=== PATIENT | male | born 1945 | race Caucasian/White ===

== ENCOUNTER 2018-09-19 08:06 | Emergency (ER) | payer OTHER, MEDICARE ==
[~2018-09-19] VITALS: Ht 193 cm; Wt 94.3 kg
[2018-09-19] MEDS ORDERED: FLUORESCEIN (FLUOR-I-STRIPS) 1 MG STRP ONE (08:08)
[2018-09-19] MEDS ORDERED: TETRACAINE 0.5% OPHTH SOLN 4 ML BTL (SINGLE DOSE ONLY) ONE (08:08)
--- NOTE | 2018-09-19 08:24 | NUR ---
DR MILIAN USED JUAREZ LAMP TO EXAMINE EYE
[2018-09-19] MEDS ORDERED: TETANUS,DIPTH,PERTUSS P/F (BOOSTRIX) 0.5 ML VIAL IM ONE (08:30)
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
[2018-09-19 10:00] VITALS: BP 152/95
[2018-09-19] MEDS ORDERED: ERYTHROMYCIN OPHTH OINT 1 GM (SINGLE USE) TUBE OP SCH (14:00)
== END 2018-09-19 10:00 | disposition home or self-care (01) ==
LOC: ER 08:08
DX: S01.111A Laceration without foreign body of right eyelid and periocular area, initial encounter (principal); I10 Essential (primary) hypertension; K21.9 Gastro-esophageal reflux disease without esophagitis; Z87.448 Personal history of other diseases of urinary system; Z88.0 Allergy status to penicillin; Z23 Encounter for immunization; V48.5XXA Car driver injured in noncollision transport accident in traffic accident, initial encounter; Y92.89 Other specified places as the place of occurrence of the external cause
CPT/HCPCS: 70450; 70486; 72125; 90715

== ENCOUNTER → 2019-06-16 | Outpatient (CLI) | payer MEDICARE ==
--- NOTE | 2019-06-16 14:35 | Diagnostic Imaging Report ---
Left knee at 9:44 a.m. INDICATION: Knee pain Three views were obtained. COMPARISON: There are no prior studies for comparison. FINDINGS: There is no fracture, dislocation or acute bony abnormality evident. The knee joint is well maintained. The soft tissues are unremarkable. IMPRESSION: There is no evidence for acute bony abnormality. Dictated by: Dictated on workstation # [id number]
== END ==
LOC: RAD FS 09:29
PROVIDERS: ATTEND Nurse Practitioner
DX: M25.562 Pain in left knee (principal)
CPT/HCPCS: 73562

== ENCOUNTER → 2020-11-07 | Outpatient (CLI) | payer MEDICARE | LOC: CARD 09:44 | PROVIDERS: ATTEND Internal Medicine Cardiovascular Disease | DX: I49.3 Ventricular premature depolarization (principal); I10 Essential (primary) hypertension; I34.0 Nonrheumatic mitral (valve) insufficiency | CPT/HCPCS: 93306 ==

== ENCOUNTER → 2020-11-19 | Outpatient (CLI) | payer MEDICARE ==
[~2020-11-19] VITALS: Ht 193 cm; Wt 93.0 kg
[~2020-11-19] MED LIST: CATHETER FLUSH 10 ML SYR IV PRN
[2020-11-19 12:04] VITALS: BP 139/87
[2020-11-19 12:07] VITALS: BP 178/88
[2020-11-19 12:13] VITALS: BP 143/81
--- NOTE | 2020-11-19 16:19 | Cardiology Stress Test Report ---
Stress Test Report Date of Procedure/Referring: Date of Procedure: Nov 19, 2020 PCP Leonie Eisenberg MD Admitting Physician Evelyn Morgan MD Indications: PVC Baseline Heart Rate: 70 Baseline Blood Pressure: Blood Pressure Systolic: 143 Blood Pressure Diastolic: 81 Vital Signs Date Time Temp Pulse Resp B/P (MAP) Pulse Ox O2 Delivery O2 Flow Rate FiO2 11/19/20 12:04 70 139/87 (104) 11/19/20 12:07 24 98 Room Air Baseline Vital Signs Vital Signs Date Time Temp Pulse Resp B/P (MAP) Pulse Ox O2 Delivery O2 Flow Rate FiO2 11/19/20 12:04 70 139/87 (104) 11/19/20 12:07 24 98 Room Air Summary: After explaining the procedure and details to the patient, he signed the consent and was brought to the stress nuclear laboratory. Patient exercised on standard Malcom protocol, EKG, heart rate and blood pressure were monitored continuously, resting and stress doses of radio tracer were injected, imaging was acquired and reviewed in the short axis, horizontal long axis and vertical long axis views Patient was able to exercise for a total of 5 minutes on Malcom protocol, METs 7 Maximum heart rate 129 Maximum blood pressure 184/94 Stress EKG, Minimal nondiagnostic changes, frequent PVCs noted during test Recovery EKG, Return to baseline TID: 1.03 SSS: 4 SDS: 4 EF: 63 Conclusion: 1. Fair exercise tolerance for a total of 5 minutes on standard Malcom protocol total of 7 METS achieving 87% of maximal expected heart rate 2. Frequent PVCs noted during exercise with occasional ventricular couplets persisted in the early phases of recovery 3. No ischemic EKG changes were noted 4. Diaphragmatic attenuation with mild decreased uptake involving the mid to apical inferior wall with mild reversibility 5. Normal left ventricular size, EF 63% LEONIE EISENBERG MD Nov 19, 2020 16:19
== END ==
LOC: CARD 10:18
PROVIDERS: ATTEND Internal Medicine Cardiovascular Disease
DX: I49.3 Ventricular premature depolarization (principal)
CPT/HCPCS: 78452; 93017; A9502

== ENCOUNTER 2020-11-28 08:43 | Day surgery (SDC) | payer MEDICARE ==
[2020-11-28] VITALS (9 sets, daily range): BP systolic 94–147; BP diastolic 56–89
[~2020-11-28] VITALS: Ht 193 cm; Wt 94.4 kg
[2020-11-28] MEDS ORDERED: NS IV 1000 ML 1,000 ML ONE (08:44)
[2020-11-28] MEDS ORDERED: LIDOCAINE 1% INJ 20 ML 20 ML VIAL ONE (08:44)
[2020-11-28] MEDS ORDERED: HEParin (CATH LAB) 2,000 ML IV ONE (08:44)
[2020-11-28] MEDS ORDERED: NS IV 1000 ML 1,000 ML IV SCH ×2 (09:00→11:00)
--- NOTE | 2020-11-28 09:21 | Diagnostic Imaging Report ---
EXAMINATION: Chest, 1 view. HISTORY: Chest pain, hypertension, abnormal stress test. COMPARISON: None available. FINDINGS: Heart size and pulmonary vasculature are normal. There are calcifications of the aorta. Mild background coarse interstitial appearance of the lungs which could represent chronic lung disease such as COPD. No consolidation, pleural effusion, or pneumothorax. Degenerative changes of the thoracic spine. Osseous structures are otherwise intact. IMPRESSION: No acute radiographic abnormality in the chest. Dictated by: Dictated on workstation # [id number]
[2020-11-28 09:23] LABS: HEMOGLOBIN 15.1 g/dL (13.3-17.7); MEAN PLATELET VOLUME 9.2 fL (9.0-12.2); WHITE BLOOD COUNT 6.8 10^3/uL (4.3-11.0)
[2020-11-28] MEDS ORDERED: FAMO20TA3 PO (09:33)
[2020-11-28] MEDS ORDERED: FINA5TAB6 PO (09:33)
[2020-11-28] MEDS ORDERED: TRIA1CAP4 PO (09:33)
[2020-11-28] MEDS ORDERED: ASCO500W4 PO (09:33)
[2020-11-28] MEDS ORDERED: MTP25TSR PO (09:33)
[2020-11-28] MEDS ORDERED: OMG1KC PO (09:33)
[2020-11-28] MEDS ORDERED: MULT-593 PO (09:33)
[2020-11-28 09:34] LABS: PROTHROMBIN TIME PATIENT 13.8 SEC (12.2-14.7)
[2020-11-28 09:40] LABS: ALBUMIN 4.2 GM/DL (3.2-4.5); BILIRUBIN,TOTAL 0.9 MG/DL (0.1-1.0); CALCIUM 9.2 MG/DL (8.5-10.1); CREATININE SERUM 1.28 MG/DL (0.60-1.30); POTASSIUM 3.8 MMOL/L (3.6-5.0); TOTAL PROTEIN 7.3 GM/DL (6.4-8.2)
--- NOTE | 2020-11-28 10:02 | Conscious Sedation/ASA ---
Conscious Sedation Pre-Proced Time 10:01 ASA Score 3 For ASA 3 and 4: Consider anesthesia and medical clearance. Also, for patients with a history of failed moderate sedation consider anesthesia. Airway Lungs Heart ASA score ASA 1: a normal healthy patient ASA 2: a patient with a mild systemic disease (mid diabetes, controlled hypertension, obesity x ASA 3: a patient with a severe systemic disease that limits activity (angina, COPD, prior Myocardial infarction) ASA 4: a patient with an incapacitating disease that is a constant threat to life (CHF, renal failure) ASA 5: a moribund patient not expected to survive 24 hrs. (ruptured aneurysm) ASA 6: a declared brain- patient whose organs are being harvested. For emergent operations, add the letter E after the classification Mallampati Classification Grade 3 Sedation Plan Analgesia, Amnesia, Plan communicated to team members, Discussed options with patient/fam, Discussed risks with patient/fam The patient is an appropriate candidate to undergo the planned procedure, sedation, and anesthesia. The patient immediately re-assessed prior to indication. LEONIE HORVATH MD Nov 28, 2020 10:02 am
[2020-11-28] MEDS ORDERED: MIDAZOLAM 5 MG/5 ML (VERSED) VIAL ONE (10:06)
[2020-11-28] MEDS ORDERED: fentaNYL INJ 100 MCG/2 ML AMP ONE (10:06)
[2020-11-28] MEDS ORDERED: NITRO DRIP 25000 MCG/D5W 250 ML IV ONE (10:07)
[2020-11-28] MEDS ORDERED: HEParin 1000 UNIT/ML (10ML VIAL) FOR BOLUS ONE (10:07)
[2020-11-28] MEDS ORDERED: VERAPAMIL 5 MG/2 ML (CALAN) VIAL IV ONE (10:07)
--- NOTE | 2020-11-28 10:51 | Cardiac Cath Report ---
Cardiac Cath Report Physician (s)/General Maintenance Mechanic (s) Physician LEONIE HORVATH MD Pre-Procedure Diagnosis Pre-Procedure Diagnosis: Coronary artery disease Post-Procedure Note Procedure Start Date: Nov 28, 2020 Name of Procedure: Left heart catheterization Findings/Procedure Note PROCEDURE NOTE: 75-year-old gentleman with history of hypertension, abnormal stress test suggestive of ischemia, scheduled for cardiac catheterization possible PTCA. After explaining the procedure to the patient, all pros and cons were explained, all questions were answered. The patient signed the consent and then he was placed on the cardiac catheterization laboratory. Groin was prepped SL fashion local anesthesia was used. Sheath placed in the right radial artery, [place] catheter was advanced to the left ventricular cavity, pressure was measured, left ventriculogram was done, pullback LV to aorta was done, intubated the right and left coronary system, angiogram was done. Patient had bout of cough and vomiting during the procedure. Could be allergic reaction to the contrast. He is feeling well at this point. At the end of the procedure the sheath was removed. Vascular band was used FINDINGS: Hemodynamics LV 83/6, end-diastolic pressure of 6 Aorta 83/50 mean of 59 ANATOMY: Left Main is free of obstructive disease Left Anterior Descending is small to moderate in size with mild disease nonobstructive disease Left Circumflex is moderate in size with no obstructive disease Right Coronary Artery is moderate in size with mild disease in the mid right coronary artery nonobstructive disease LV Gram was done showing normal left ventricular size, normal contractility, ejection fraction 50% CONCLUSION: 1. Mild coronary artery disease nonobstructive disease 2. Normal left ventricular systolic function ejection fraction 50%, normal left ventricular end-diastolic pressure DISCUSSION AND RECOMMENDATION: Medical therapy is recommended no intervention is warranted Anesthesia Type: Conscious Sedation Estimated blood loss (mL): 10 ml Contrast Amount: 53 ml Total Radiation Dose: 285 mGy Post-Procedure Diagnosis Post-operative diagnosis: Chest pain Coronary artery disease Hypertension Hyperlipidemia LEONIE HORVATH MD Nov 28, 2020 10:50
--- NOTE | 2020-11-28 10:52 | Discharge Inst-Post CATH ---
Discharge Inst-CATH/EP Problems Reviewed?: Yes Post Cardiac Cath/EP D/C Inst Follow Up/Plan Appointment with Dr. Eisenberg's office in 4 weeks <b>CARDIAC CATH/EP PROCEDURE DISCHARGE INSTRUCTIONS</b> ACTIVITY * Go Home directly and rest. * Limit activity of the leg (or wrist if it was used) for 7 days including aerobics, swimming, jogging, bicycling, etc. * Restrict stair-climbing for 7 days if possible, if not, climb up with your non-cath leg, then bring together on the same step. * Avoid lifting, pushing, pulling or excessive movement of the affected extremity for 7 days. * Customary sexual activity may be resumed after 2 days-use caution not to use a position that strains or causes pain to the affected extremity. * No driving for 24 hours. * NO SMOKING. * Avoid straining for bowel movements for 7 days. * Gentle walking on level ground is allowed. * Returning to work will depend on the type of procedure and the results. Your doctor will discuss this with you. CALL YOUR DOCTOR FOR ANY OF THE FOLLOWING: *If bleeding from the puncture site occurs- Apply gentle pressure to site with clean cloth and call your doctor or EMS. * If a knot or lump forms under the skin, increases in size, or causes pain. * If bruising appears to be worsening or moving further down your leg instead of disappearing. * Temperature above 101 F. CARE OF YOUR GROIN INCISION; * Bruising or purple discoloration of the skin near the puncture site is common. * You may shower only, no bathtub bathing for 5 days. Be careful to avoid slipping as your leg may feel stiff. * If a closure device was used on your femoral artery, please see the attached guide regarding care of the device and your leg. * Leave dressing on FOR 24 hours. CARE OF YOUR WRIST INCISION; * Bruising or purple discoloration of the skin near the puncture site is common. * You may shower. * DO NOT submerge wrist. * Leave dressing on FOR 24 hours. LEONIE EISENBERG MD Nov 28, 2020 10:52
== END 2020-11-28 13:30 ==
LOC: CATH 08:43 → SDC 11:02 → CATH 13:30
PROVIDERS: ATTEND Internal Medicine Cardiovascular Disease
DX: I25.10 Atherosclerotic heart disease of native coronary artery without angina pectoris (principal); K21.9 Gastro-esophageal reflux disease without esophagitis; N40.0 Benign prostatic hyperplasia without lower urinary tract symptoms; I10 Essential (primary) hypertension; I49.3 Ventricular premature depolarization; E78.5 Hyperlipidemia, unspecified; Z79.899 Other long term (current) drug therapy; Z88.0 Allergy status to penicillin; Z87.891 Personal history of nicotine dependence
CPT/HCPCS: 71045; 80053; 80061; 85027; 85610; 85730; 87081; 93458; C1894; 36415

== ENCOUNTER → 2021-08-13 | Outpatient (CLI) | payer MEDICARE ==
[~2021-08-13] MED LIST changes: +ASCO500W4 PO; -CATHETER FLUSH 10 ML SYR IV PRN; +FAMO20TA3 PO; +FINA5TAB6 PO; +MTP25TSR PO; +MULT-593 PO; +OMG1KC PO; +TRIA1CAP4 PO
--- NOTE | 2021-08-13 10:43 | Diagnostic Imaging Report ---
EXAMINATION: PA and lateral chest at 10:24 AM. INDICATION: Shortness of breath. FINDINGS: The heart size is within normal limits and stable when compared to 11/28/2020. The chronic pulmonary changes seen on the prior study are again evident and no different. There is no sign of failure, pneumonia, or pleural effusion. The mediastinum is not widened. The osseous structures are intact. IMPRESSION: Stable chest. There has been no adverse change since the prior exam. Dictated by: Dictated on workstation # [id number]
== END ==
LOC: RAD FS 10:14
PROVIDERS: ATTEND Family Medicine
DX: R06.02 Shortness of breath (principal)
CPT/HCPCS: 71046

== ENCOUNTER → 2022-07-08 | Outpatient (CLI) | payer MEDICARE ==
[~2022-07-08] MED LIST changes: -TRIA1CAP4 PO; +TRIA1CAP84 PO
== END ==
LOC: CARDFS 13:45
PROVIDERS: ATTEND Internal Medicine Cardiovascular Disease
DX: I11.9 Hypertensive heart disease without heart failure (principal)
CPT/HCPCS: 93306